=== PATIENT | female | born 1970 | race Caucasian/White ===

== ENCOUNTER 2017-08-26 09:15 | Emergency (ER) | payer MEDICAID ==
[2017-08-26] MEDS ORDERED: NS 500 ML IV ONE (09:26)
[2017-08-26] MEDS ORDERED: ASPIRIN 81 MG CHEWABLE TAB PO ONE (09:26)
--- NOTE | 2017-08-26 09:42 | CPEKG ---
Heart Rate: 69 RR Interval: 870 P-R Interval: 140 QRSD Interval: 84 QT Interval: 372 QTC Interval: 399 P Panther: 72 QRS Panther: 63 T Wave Panther: 50 EKG Severity - ABNORMAL ECG - EKG Impression: SINUS RHYTHM EKG Impression: LEFT ATRIAL ABNORMALITY Electronically Signed By: Beto Hendricks 26-Aug-2017 11:07:32
--- NOTE | 2017-08-26 09:48 | EDPHY ---
H & P Time Seen by Provider: 08/26/17 09:26 HPI/ROS: HPI Chest discomfort. 47-year-old female by private vehicle. This patient reports that she has had intermittent chest discomfort which she describes as twinges in her left upper anterior lateral chest lasting seconds at a time, sudden-onset and then gone. Intermittent in nature. She reports that the discomfort has become more persistent in the last few days and she now describes it as a pulsing burning sensation, again lasting seconds at a time, coming on quickly and then gone, more medial and central left upper chest. She reports some mild shortness of breath but states she thinks this is because of stress. Mother has a history of coronary artery disease. She is not obese. No history of hypertension, diabetes, hyperlipidemia. She does not smoke. She spoke to her primary care physician regarding this complaint. She was told to come to the emergency department. She 1st went to an urgent care was sent here. ROS: Constitutional: No fever, no chills. No weakness. Eyes: No discharge. No changes in vision. ENT: No sore throat. No nasal congestion or rhinorrhea. Respiratory: No cough. As above. Cardiac: As above, no palpitations. Gastrointestinal: No abdominal pain, no vomiting, no diarrhea. Genitourinary: No hematuria. No dysuria or increased frequency with urination. Musculoskeletal: No back pain. No neck pain. No myalgias or arthralgias. Skin: No rashes. Neurological: No headache. No focal weakness or altered sensation. Past medical history: Denies any significant past medical history. She is not on any prescription medications. Social history: Nonsmoker. No IV drugs or street drugs. Here by herself. Denies alcohol. Physical Exam: General Appearance: Alert, no distress. This patient is responding to questions appropriately and in full sentences. This patient appears well- hydrated and well-nourished. Eyes: Pupils equal and round no pallor or injection. No lid edema, erythema or injection. Respiratory: There are no retractions, lungs are clear to auscultation with good air movement bilaterally. Cardiovascular: Regular rate and rhythm. No murmur. Gastrointestinal: Abdomen is soft and nontender, no masses, bowel sounds normal. No focal tenderness at McBurney's point. No Kelly sign. Neurological: Motor sensory function is grossly intact. Cranial nerves are normal. Gait is normal. Skin: Warm and dry, no rashes. Musculoskeletal: Neck is supple and nontender. Extremities are symmetrical. All joints range without pain or impingement. Psychiatric: No agitation. No depression. Database: EKG: EKG time is 9:40 a.m.; EKG shows a narrow complex normal sinus rhythm with a ventricular rate of 69. The LA, QRS, QT intervals are within normal limits. There are no ST-T wave changes indicative of ischemic or injury pattern. No evidence of right heart strain. Interpreted by me. Imaging: Chest x-ray AP portable; the cardiac mediastinal silhouette is unremarkable. No evidence of infiltrate or pneumothorax. No acute cardiopulmonary disease process noted. Interpreted by me. Procedures: Emergency department course: Triage vital signs reviewed and are normal. Patient was given 324 mg of chewed aspirin in triage. Heart score is 2-low risk. No pain at this time of evaluation. 10:30 a.m., patient re-evaluated. Resting comfortably. Son is in her lap. The patient is smiling. Denies any chest pain at this time. Awaiting results of D-dimer. Results of other diagnostic testing discussed with her. 11:00 a.m., patient re-evaluated. Again no chest pain. No shortness of breath. Her workup has been reassuring. Based on her heart score she is low risk. She does not wish to stay for a 2nd troponin or be admitted for observation. The patient competently engages in shared decision making. They demonstrate capacitance to make decisions. She feels comfortable going home at this time with her son. I will have her follow up at [facility] on Tuesday for re-evaluation. Return to emergency department precautions were thoroughly reviewed with her. All of her questions were answered. She was discharged in good condition. Differential Diagnosis: The differential diagnosis on this patient includes but is not limited to noncardiac chest pain. Myocarditis, pericarditis, acute coronary syndrome, pulmonary embolism, pneumothorax, pneumonia, aortic dissection unlikely. This represents a partial list of diagnoses considered. These considerations are based on history, physical exam, past history, reassessment and diagnostic testing. Smoking Status: Never smoked Constitutional: Initial Vital Signs Temperature (C) 36.6 C 08/26/17 09:16 Heart Rate 83 08/26/17 09:16 Respiratory Rate 18 08/26/17 09:16 Blood Pressure 121/85 H 08/26/17 09:16 O2 Sat (%) 98 08/26/17 09:16 O2 Delivery Mode Room Air Allergies/Adverse Reactions: No Known Allergies Allergy (Unverified 08/26/17 09:15) Home Medications: Medication Instructions Recorded NK [No Known Home Meds] 08/26/17 Medical Decision Making - Diagnostics Imaging Results: Imaging Impressions Chest X-Ray 08/26/17 09:26 Impression: No significant radiographic abnormality. Specifically, a source for chest pain is not identified. - Data Points Laboratory Results: Laboratory Results 08/26/17 10:04 08/26/17 10:04 08/26/17 08/26/17 08/26/17 10:04 10:04 10:04 WBC 6.00 10^3/uL 10^3/uL (3.80-9.50) RBC 4.97 10^6/uL 10^6/uL (4.18-5.33) Hgb 14.8 g/dL g/dL (12.6-16.3) Hct 42.1 % % (38.0-47.0) MCV 84.7 fL fL (81.5-99.8) MCH 29.8 pg pg (27.9-34.1) MCHC 35.2 g/dL g/dL (32.4-36.7) RDW 12.5 % % (11.5-15.2) Plt Count 288 10^3/uL 10^3/uL (150-400) MPV 8.8 fL fL (8.7-11.7) Neut % (Auto) 63.1 % % (39.3-74.2) Lymph % (Auto) 27.3 % % (15.0-45.0) Hendry % (Auto) 6.5 % % (4.5-13.0) Eos % (Auto) 2.0 % % (0.6-7.6) Baso % (Auto) 0.8 % % (0.3-1.7) Nucleat RBC Rel Count 0.0 % % (0.0-0.2) Absolute Neuts (auto) 3.78 10^3/uL 10^3/uL (1.70-6.50) Absolute Lymphs (auto) 1.64 10^3/uL 10^3/uL (1.00-3.00) Absolute Monos (auto) 0.39 10^3/uL 10^3/uL (0.30-0.80) Absolute Eos (auto) 0.12 10^3/uL 10^3/uL (0.03-0.40) Absolute Basos (auto) 0.05 10^3/uL 10^3/uL (0.02-0.10) Absolute Nucleated RBC 0.00 10^3/uL 10^3/uL (0-0.01) Immature Gran % 0.3 % % (0.0-1.1) Immature Gran # 0.02 10^3/uL 10^3/uL (0.00-0.10) PT 13.3 SEC SEC (12.0-15.0) INR 0.99 (0.83-1.16) APTT 28.1 SEC SEC (23.0-38.0) D-Dimer < 0.27 ug/mLFEU ug/mLFEU (0.00-0.50) Sodium 142 mEq/L mEq/L (135-145) Potassium 4.2 mEq/L mEq/L (3.3-5.0) Chloride 105 mEq/L mEq/L (97-110) Carbon Dioxide 23 mEq/l mEq/l (22-31) Anion Gap 14 mEq/L mEq/L (8-16) BUN 15 mg/dL mg/dL (7-23) Creatinine 0.8 mg/dL mg/dL (0.6-1.0) Estimated GFR > 60 Glucose 81 mg/dL mg/dL (70-100) Calcium 9.5 mg/dL mg/dL (8.5-10.4) Creatine Kinase 54 IU/L IU/L (0-156) CK-MB (CK-2) Fraction 0.39 ng/mL ng/mL (0.00-3.19) Troponin I < 0.012 ng/mL ng/mL (0.000-0.034) Medications Given: Discontinued Medications Aspirin (Aspirin) 324 mg PO EDNOW ONE Stop: 08/26/17 09:27 Last Admin: 08/26/17 10:01 Dose: 324 mg Sodium Chloride (Ns) 500 mls @ 1,000 mls/hr IV EDNOW ONE PRN Reason: Protocol Stop: 08/26/17 09:55 Last Admin: 08/26/17 10:01 Dose: 500 mls Departure - Departure Disposition: [facility] Inpatient Acute Clinical Impression: Chest discomfort Condition: Good Instructions: Chest Pain (ED) Additional Instructions: Read and follow provided instructions. Follow-up with [facility] on Tuesday for re-evaluation. Call this afternoon for appointment time, it is important you follow up within the next 3 days. They will evaluate you further and obtain a stress test. Take 81 mg of chewed aspirin daily. Return to the emergency department immediately for worsening chest pain, shortness of breath or other serious concerns. Referrals: Katelyn Jeffrey MD [Primary Care Provider] - As per Instructions [facility] [Provider Group] - As per Instructions
[2017-08-26 10:23] LABS: PLATELET COUNT 288 10^3/uL (150-400)
[2017-08-26 10:31] LABS: CREATINE KINASE 54 IU/L (0-156); INR 0.99 (0.83-1.16); PROTIME(PATIENT) 13.3 SEC (12.0-15.0)
[2017-08-26 11:15] VITALS: BP 96/67
== END 2017-08-26 11:17 | disposition still patient (30) ==
DX: R07.89 Other chest pain (principal); E86.9 Volume depletion, unspecified

== ENCOUNTER 2018-01-16 08:15 | Day surgery (SDC) | payer MEDICAID ==
[2018-01-16] MEDS ORDERED: LIDOCAINE 1% 2 ML INJ ONE (08:30)
[2018-01-16] MEDS ORDERED: LR 1,000 ML IV ONE (08:42)
[2018-01-16] MEDS ORDERED: NALOXONE HCL 0.4 MG/ML INJ IVP PRN (09:57)
[2018-01-16] MEDS ORDERED: ONDANSETRON 4 MG/2 ML VIAL IVP PRN (09:57)
[2018-01-16] MEDS ORDERED: LR 500 ML IV PRN (09:57)
[2018-01-16] MEDS ORDERED: fentaNYL 100 MCG/2 ML INJ IVP PRN (09:57)
[2018-01-16] MEDS ORDERED: DEXAMETHASONE 4 MG/ML VIAL IVP PRN (09:57)
--- NOTE | 2018-01-16 09:57 | PDANEPAE ---
ANE History of Present Illness screening and f/u on abnl colonoscopies ANE Past Medical History - Cardiovascular History Hx Hypertension: No Hx Arrhythmias: No Hx Chest Pain: No Hx Coronary Artery / Peripheral Vascular Disease: No Hx CHF / Valvular Disease: No Hx Palpitations: No - Pulmonary History Hx COPD: No Hx Asthma/Reactive Airway Disease: No Hx Recent Upper Respiratory Infection: No Hx Oxygen in Use at Home: No Hx Sleep Apnea: No Sleep Apnea Screening Result - Last Documented: Negative - Neurologic History Hx Cerebrovascular Accident: No Hx Seizures: No Hx Dementia: No - Endocrine History Hx Diabetes: No - Renal History Hx Renal Disorders: No - Liver History Hx Hepatic Disorders: No - Neurological & Psychiatric Hx Hx Neurological and Psychiatric Disorders: Yes Neurological / Psychiatric History Comment: anxiety at times - Cancer History Hx Cancer: No - Congenital Disorder History Hx Congenital Disorders: No - GI History Hx Gastrointestinal Disorders: Yes Gastrointestinal History Comment: hx of colonoscopies x3. poss reflux - Other Health History Other Health History: wears reading glasses - Chronic Pain History Chronic Pain: No - Surgical History Prior Surgeries: wisdom teeth extracted. colonoscopies x3 ANE Review of Systems Review of Systems: - Exercise capacity METS (RN): 4 METS ANE Patient History - Allergies Allergies/Adverse Reactions: No Known Allergies Allergy (Verified 01/02/18 11:58) - Home Medications Home Medications: NK [No Known Home Meds] 08/26/17 [Last Taken Unknown] - NPO status NPO Since - Liquids (Date): 01/16/18 NPO Since - Liquids (Time): 00:15 NPO Since - Solids (Date): 01/15/18 NPO Since - Solids (Time): 09:00 - Smoking Hx Smoking Status: Never smoked - Family Anes Hx Family Hx Anesthesia Complications: none ANE Labs/Vital Signs - Vital Signs Blood Pressure: 126/69 Heart Rate: 63 Respiratory Rate: 20 O2 Sat (%): 96 Height: 162.56 cm Weight: 58.06 kg ANE Physical Exam - Airway Neck exam: FROM Mallampati Score: Class 1 Mouth exam: normal dental/mouth exam - Pulmonary Pulmonary: no respiratory distress - Cardiovascular Cardiovascular: regular rate and rhythym - ASA Status ASA Status: II ANE Anesthesia Plan Anesthesia Plan: GA with mask
[2018-01-16] MEDS ORDERED: fentaNYL 100 MCG/2 ML INJ ONE (10:00)
[2018-01-16] MEDS ORDERED: LIDOCAINE 2% 5 ML SDV ONE (10:00)
[2018-01-16] MEDS ORDERED: PROPOFOL/EMULSION 500 MG/50 ML BOTTLE IV ONE (10:00)
--- NOTE | 2018-01-16 10:10 | PDGENHP ---
History & Physical Chief Complaint: Abdominal pain, epigastric History of Present Illness: Personal history of pre-cancerous colon polyps ( surveillance colonoscopy). Family History of colon cancer multiple relatives. 1 year of epigastric abdominal pain. No N/V or weight loss. Chronic NSAID use. Pertinent Past, Social, Family History: PMH: Headaches. Personal history of colon polyps. FH: multiple 2nd degree relatives with colon cancer. SH: No tobacco or ETOH Relevant Physical Exam: NAD. CTA B/L. RRR without m/r/g. GI: Soft. NABS. NT/ ND. No R/G Cardiorespiratory Assessment: ASA I. EGD. Colonoscopy with MAC
--- NOTE | 2018-01-16 10:25 | GIREPORT ---
[facility] Surgical Services - Endoscopy Department Patient Name: Kayla Anaya Procedure Date: 01/16/2018 9:59 AM Patient Type: Outpatient Attending MD/ ER Physician: Cristo Kong MD Procedure: Upper GI endoscopy Indications: Epigastric abdominal pain, Celiac disease Providers: Cristo Kong MD Medicines: Propofol per Anesthesia Complications: No immediate complications. Description of Procedure: After obtaining informed consent, the endoscope was passed under direct vision. Throughout the procedure, the patient's blood pressure, pulse, and oxygen saturations were monitored continuously. The Endoscope was intro duced through the mouth, and advanced to the second part of duodenum. The [facility] er GI endoscopy was accomplished without difficulty. The patient tolerated th e procedure well. Findings: A non-obstructing Schatzki ring was found at the gastroesophageal junct ion. The stomach was normal. The duodenal bulb, first portion of the duodenum and second portion of the duodenum were normal. Biopsies for histology were taken with a cold for ceps for evaluation of celiac disease. Estimated Blood Loss: Estimated blood loss: none. Post Op Diagnosis: - Non-obstructing Schatzki ring. - Normal stomach. - Normal duodenal bulb, first portion of the duodenum and second portio n of the duodenum. Biopsied. - No endoscopic features of celiac sprue. - No clear cause for abdominal pain. Recommendation: - Await pathology results. - Gluten free diet. - Return to physician child center assistant as previously scheduled. - Perform a colonoscopy today. - Continue present medications. - Patient has a contact number available for emergencies. The signs and symptoms of potential delayed complications were discussed with the pat ient. Return to normal activities tomorrow. Written discharge instructions we re provided to the patient. - Thank you for allowing me to be involved in the care of your patient. Attending Participation: I personally performed the entire procedure without the assistance of a fellow, resident or surg ical child center assistant. Cristo Kong MD Cristo Kong MD 01/16/2018 10:24:38 AM This report has been signed electronicallyDavid MD Dilan Number of Addenda: 0 Note Initiated On: 01/16/2018 9:59 AM [email or web address]
--- NOTE | 2018-01-16 10:48 | GIREPORT ---
[facility] Surgical Services - Endoscopy Department Patient Name: Kayla Anaya Procedure Date: 01/16/2018 10:22 AM Patient Type: Outpatient Attending MD/ ER Physician: Cristo Kong MD Procedure: Colonoscopy Indications: Colon cancer screening in patient at increased risk: Family history of colorectal cancer in multiple 2nd degree relatives, High risk colon can cer surveillance: Personal history of colonic polyps Providers: Cristo Kong MD Medicines: Propofol per Anesthesia Complications: No immediate complications. Description of Procedure: After obtaining informed consent, the scope was passed under direct vis ion. Throughout the procedure, the patient's blood pressure, pulse, and oxyg en saturations were monitored continuously. The Colonoscope was introduced through the anus and advanced to the cecum, identified by appendiceal orifice and ileocecal valve. The colonoscopy was performed without difficulty. The patient tolerated the procedure well. The quality of th e bowel preparation was excellent. The ileocecal valve, appendiceal orifi ce, and rectum were photographed. Findings: The perianal and digital rectal examinations were normal. Pertinent negatives include normal sphincter tone and no palpable rectal lesions. The entire examined colon appeared normal. Estimated Blood Loss: Estimated blood loss: none. Post Op Diagnosis: - The entire examined colon is normal. - No specimens collected. Recommendation: - Repeat colonoscopy in 5 years for surveillance. - Family history questionnaire to patient and return to us when complet ed. A genetic consultation will be arranged if indicated based on review of t he survey. - Resume previous diet. - Continue present medications. - Patient has a contact number available for emergencies. The signs and symptoms of potential delayed complications were discussed with the pat ient. Return to normal activities tomorrow. Written discharge instructions we re provided to the patient. - Thank you for allowing me to be involved in the care of your patient. Attending Participation: I personally performed the entire procedure without the assistance of a fellow, resident or surg ical clinical nursing assistant. Cristo Kong MD Cristo Kong MD 01/16/2018 10:47:24 AM This report has been signed electronicallyDavid MD Dilan Number of Addenda: 0 Note Initiated On: 01/16/2018 10:22 AM Total Procedure Duration Time 0 hours 10 minutes 40 seconds [email or web address]
[2018-01-16 11:55] VITALS: BP 103/75
--- NOTE | 2018-01-16 15:20 | POSTANESTH ---
Post Anesthetic Evaluation Cardiovascular Status: Normal, Stable Respiratory Status: Normal, Stable Level of Consciousness/Mental Status: Can Participate in Eval Pain Control: Adequate, Prn Tx Ordered Nausea/Vomiting Control: Adequate, Prn Tx Ordered Complications Possibly Related to Anesthesia: None Noted (no questions or comlaints prior to dc, case load today quick and unable to document at time of exam)
== END 2018-01-16 11:48 | disposition home or self-care (01) ==
LOC: FSGY 08:15
PROVIDERS: ATTEND Internal Medicine Gastroenterology
DX: R10.13 Epigastric pain (principal); Z80.0 Family history of malignant neoplasm of digestive organs
CPT/HCPCS: J2704; J3010

== ENCOUNTER 2018-02-22 20:05 | Emergency (ER) | payer MEDICAID ==
[2018-02-22] MEDS ORDERED: NS 1,000 ML IV ONE (20:55)
--- NOTE | 2018-02-22 20:58 | EDPHY ---
H & P Time Seen by Provider: 02/22/18 20:37 HPI/ROS: CHIEF COMPLAINT: Severe abdominal pain HISTORY OF PRESENT ILLNESS: Patient has a history of some gastrointestinal issues with ongoing epigastric pain with a negative EGD [address] Kong. She has never had evaluation for gallstones before to her knowledge. She presents tonight with severe epigastric pain starting at 6:00 p.m. While she was eating rice, radiating to both sides across her lower ribs to the back most severely on the right side. Associated with nausea and vomiting, no urinary symptoms, a little bit of diarrhea. No injury or trauma. Not better worse with anything. REVIEW OF SYSTEMS: Eye: no change in vision ENT: no sore throat Cardiac: no chest pain or syncope Pulmonary: no cough or SOB Abdomen: HPI Musculoskeletal: no back pain Skin: no rash Neuro: Little bit of a migraine tonight Constitutional: no fever : no urinary symptoms A comprehensive 10 point review of systems is otherwise negative aside from elements mentioned in the history of present illness. PAST MEDICAL HISTORY: As in HPI otherwise negative Social history: Nonsmoker, minimal alcohol General Appearance: Alert and conversant, cooperative. Eyes: No scleral icterus. ENT, Mouth: Normal mucous membranes. Respiratory: Normal respiratory effort, breath sounds equal, lungs are clear to auscultation. Cardiovascular: Regular rate and rhythm. Gastrointestinal: Epigastric and right upper quadrant tenderness to palpation. No lower abdominal or McBurney's point tenderness. No rebound or guarding. Neurological: Alert, face symmetric, normal motor and sensory in extremities. Skin: Warm and dry, no rashes. Musculoskeletal: No peripheral edema. Psychiatric: Not agitated. Emergency Department course/MDM: Declined pain medication or anti nausea. Gallbladder ultrasound labs to include CBC LFTs lipase HCG. With bilateral pain and tenderness to palpation and no urinary symptoms, I think renal colic is unlikely. 223: No stones, nl CBD, wall thickness 4mm per Isgeraldine. 2237: Discussed with Javon will see in ED. 2301: Seen by Dr. Alejandro discussed with the patient, recommends discharge on oral Levaquin 750 mg per day for 5 days, she will see her in the office. Risk, benefits, alternatives of this course of action discussed with the patient and consented by surgeon. Smoking Status: Never smoked Constitutional: Initial Vital Signs Temperature (C) 37.3 C 02/22/18 20:15 Heart Rate 113 H 02/22/18 20:15 Respiratory Rate 20 02/22/18 20:15 Blood Pressure 105/67 02/22/18 20:15 O2 Sat (%) 97 02/22/18 20:15 O2 Delivery Mode Room Air Allergies/Adverse Reactions: No Known Allergies Allergy (Verified 02/22/18 20:14) Home Medications: Medication Instructions Recorded levOFLOXACIN [levAQUIN (*)] 750 mg PO DAILY #4 tab 02/22/18 Medical Decision Making Differential Diagnosis: Differential considered including but not limited to reflux, hepatitis, pancreatitis, cholecystitis - Data Points Laboratory Results: Laboratory Results 02/22/18 20:43 02/22/18 20:43 02/22/18 02/22/18 02/22/18 20:43 20:43 20:43 WBC 12.56 10^3/uL H 10^3/uL (3.80-9.50) RBC 4.76 10^6/uL 10^6/uL (4.18-5.33) Hgb 14.3 g/dL g/dL (12.6-16.3) Hct 40.5 % % (38.0-47.0) MCV 85.1 fL fL (81.5-99.8) MCH 30.0 pg pg (27.9-34.1) MCHC 35.3 g/dL g/dL (32.4-36.7) RDW 12.0 % % (11.5-15.2) Plt Count 253 10^3/uL 10^3/uL (150-400) MPV 8.8 fL fL (8.7-11.7) Neut % (Auto) 92.3 % H % (39.3-74.2) Lymph % (Auto) 3.2 % L % (15.0-45.0) Saunders % (Auto) 3.5 % L % (4.5-13.0) Eos % (Auto) 0.4 % L % (0.6-7.6) Baso % (Auto) 0.2 % L % (0.3-1.7) Nucleat RBC Rel Count 0.0 % % (0.0-0.2) Absolute Neuts (auto) 11.59 10^3/uL H 10^3/uL (1.70-6.50) Absolute Lymphs (auto) 0.40 10^3/uL L 10^3/uL (1.00-3.00) Absolute Monos (auto) 0.44 10^3/uL 10^3/uL (0.30-0.80) Absolute Eos (auto) 0.05 10^3/uL 10^3/uL (0.03-0.40) Absolute Basos (auto) 0.03 10^3/uL 10^3/uL (0.02-0.10) Absolute Nucleated RBC 0.00 10^3/uL 10^3/uL (0-0.01) Immature Gran % 0.4 % % (0.0-1.1) Immature Gran # 0.05 10^3/uL 10^3/uL (0.00-0.10) RBC/WBC/PLT Morphology TNP Platelet Estimate TNP Sodium 136 mEq/L mEq/L (135-145) Potassium 3.7 mEq/L mEq/L (3.3-5.0) Chloride 103 mEq/L mEq/L (97-110) Carbon Dioxide 24 mEq/l mEq/l (22-31) Anion Gap 9 mEq/L mEq/L (6-14) BUN 10 mg/dL mg/dL (7-23) Creatinine 0.7 mg/dL mg/dL (0.6-1.0) Estimated GFR > 60 Glucose 100 mg/dL mg/dL (70-100) Calcium 9.3 mg/dL mg/dL (8.5-10.4) Total Bilirubin 2.0 mg/dL H mg/dL (0.1-1.4) Conjugated Bilirubin 0.3 mg/dL mg/dL (0.0-0.5) Unconjugated Bilirubin 1.7 mg/dL H mg/dL (0.0-1.1) AST 139 IU/L H IU/L (14-46) ALT 87 IU/L H IU/L (9-52) Alkaline Phosphatase 74 IU/L IU/L (38-126) Total Protein 7.6 g/dL g/dL (6.3-8.2) Albumin 4.6 g/dL g/dL (3.5-5.0) Lipase 148 IU/L IU/L (23-300) Beta HCG, Qual NEGATIVE Medications Given: Discontinued Medications Sodium Chloride (Ns) 1,000 mls @ 0 mls/hr IV EDNOW ONE; Wide Open PRN Reason: Protocol Stop: 02/22/18 20:56 Last Admin: 02/22/18 20:50 Dose: 1,000 mls Departure - Departure Disposition: Home, Routine, Self-Care Clinical Impression: Abdominal pain Qualifiers: Abdominal location: right upper quadrant Qualified Code(s): R10.11 - Right upper quadrant pain Condition: Good Instructions: Acute Abdominal Pain (ED) Referrals: Katelyn Jeffrey MD [Primary Care Provider] - As per Instructions Dinora Alejandro MD [Medical Doctor] - As per Instructions Prescriptions: levOFLOXACIN [levAQUIN (*)] 750 mg PO DAILY #4 tab
[2018-02-22 21:03] LABS: PLATELET COUNT 253 10^3/uL (150-400)
[2018-02-22 23:26] VITALS: BP 114/68
--- NOTE | 2018-02-23 08:06 | GCON ---
DATE OF CONSULTATION: 02/22/2018 REFERRING PHYSICIAN: Daryn Yeager MD CHIEF COMPLAINT: Viry cholecystitis. HISTORY OF PRESENT ILLNESS: The patient is a 47-year-old woman who has a longstanding history of chr onic abdominal pain. She is followed by Dr. Kong. A couple months ago, she had an upper and lower endoscopy which was reported as completely normal. She was intending to follow up with Dr. Kong to continue to pursue the abdominal pain but has not yet been able to accomplish that. This evening at 6 p.m., she had intense onset of epigastric pain. It radiated down her bilateral abdomens into her r ight back. She had emesis x1, which did not alleviate the pain. She called the nurse line and was r ecommended to present to the emergency room. In the emergency room, her pain has improved somewhat. PAST MEDICAL HISTORY: Abdominal pain. SOCIAL HISTORY: She has a 6-year-old son. She is a nonsmoker. FAMILY HISTORY: No history of inflammatory bowel disease. ALLERGIES: No known drug allergies. REVIEW OF SYSTEMS: She does complain of headaches, muscle tension, abdominal pain. She denies urina ry symptoms. She is not currently having nausea. She has had 1 bout of diarrhea. No constipation. Otherwise, 10-point review of systems. PHYSICAL EXAM: VITAL SIGNS: 37.3, 100, 113/65, 16, 94%. GENERAL: Pleasant thin woman sitting up i n bed with a 6-year-old on [facility]. She is well groomed and fit. HEENT: Normocephalic. No gross he aring deficits. Mucous membranes moist. Pupils equal and round. No scleral icterus. LUNGS: Clear to auscultation bilaterally. No increased work of breathing. CARDIAC: A bit tachycardic but regul ar. ABDOMEN: Bowel sounds are present. She has a small umbilical hernia that is nontender. She is quite soft and actually nontender to medium palpation. SKIN: Warm and dry. PSYCH: Mood and affec t normal. NEURO: Grossly intact. LABORATORY/IMAGING DATA: I personally reviewed the results of her ultrasound, which does not show ga llstones. It does have gallbladder wall thickening. Her laboratory results are significant for a wh ite blood cell count of 12.56. Her lipase is normal. Her AST is 139, ALT 87, and her total bilirubi n is 2. Of that, conjugated is only 0.3. IMPRESSION/PLAN: The patient is a 47-year-old woman with chronic abdominal pain and acute onset of u pper abdominal pain that is improved with rest. We discussed additional imaging such as a HIDA scan. We discussed antibiotics and follow up phone call tomorrow to make sure her symptoms are not escala ting. We also discussed going to the operating room tonight for cholecystectomy. She does not have pericholecystic fluid, but there is a chance she could have acalculous cholecystitis due to white blo od cell count elevated, thickened gallbladder wall, and mid epigastric tenderness. She would like to be discharged with antibiotics. She understands that if her clinical condition worsens, she needs t o return to the emergency department. I have also provided her with my office phone number. /[id number]/MODL
== END 2018-02-22 23:25 | disposition home or self-care (01) ==
DX: R10.11 Right upper quadrant pain (principal); E86.9 Volume depletion, unspecified

== ENCOUNTER 2018-03-07 10:01 | Day surgery (SDC) | payer MEDICAID ==
[2018-03-07] MEDS ORDERED: ceFAZolin 2 GM/DEXTROSE 100 ML IV ONE (10:05)
[2018-03-07] MEDS ORDERED: LIDOCAINE 1% 2 ML INJ ID PRN (10:06)
[2018-03-07] MEDS ORDERED: LR 1,000 ML IV ONE (10:06)
--- NOTE | 2018-03-07 10:32 | PDHPUP ---
History & Physical Update H&P update statement: This history and physical update is based on an assessment of the patient which was completed after admission or registration (within 24 hours), but prior to the surgery/procedure. H&P update: H&P reviewed & patient examined, no change in patient's condition since H&P completed
[2018-03-07] MEDS ORDERED: BUPIVACAINE 0.5% 30 ML SDV ONE (11:35)
[2018-03-07] MEDS ORDERED: MIDAZOLAM 2 MG/2 ML VIAL ONE (11:44)
[2018-03-07] MEDS ORDERED: MIDAZOLAM 2 MG/2 ML VIAL IVP ONE (11:45)
[2018-03-07] MEDS ORDERED: PROPOFOL 200 MG/20 ML VIAL ONE (11:47)
[2018-03-07] MEDS ORDERED: fentaNYL 100 MCG/2 ML INJ ONE (11:47)
[2018-03-07] MEDS ORDERED: ROCURONIUM 50 MG/5 ML VIAL ONE (11:48)
[2018-03-07] MEDS ORDERED: LIDOCAINE 2% 5 ML SDV ONE (11:49)
[2018-03-07] MEDS ORDERED: DEXAMETHASONE 4 MG/ML VIAL ONE ×2 (11:58→12:04)
[2018-03-07] MEDS ORDERED: ONDANSETRON 4 MG/2 ML VIAL ONE (11:58)
[2018-03-07] MEDS ORDERED: DIAZEPAM 5 MG/ML 1 ML SYR IVP PRN (12:21)
[2018-03-07] MEDS ORDERED: LABETALOL HCL 20 MG/4 ML INJ IVP PRN (12:21)
[2018-03-07] MEDS ORDERED: fentaNYL 100 MCG/2 ML INJ IVP PRN (12:21)
[2018-03-07] MEDS ORDERED: ACETAMINOPHEN 500 MG TAB PO PRN (12:21)
[2018-03-07] MEDS ORDERED: METOCLOPRAMIDE 10 MG/2 ML VIAL IVP PRN (12:21)
[2018-03-07] MEDS ORDERED: ALBUTEROL 3 ML DEYVIAL IH PRN (12:21)
[2018-03-07] MEDS ORDERED: PROMETHAZINE HCL 25 MG/ML INJ IVP PRN (12:21)
[2018-03-07] MEDS ORDERED: LR 500 ML IV PRN (12:21)
[2018-03-07] MEDS ORDERED: NALOXONE HCL 0.4 MG/ML INJ IVP PRN (12:21)
[2018-03-07] MEDS ORDERED: MEPERIDINE 25 MG/0.5 ML AMP IVP PRN (12:21)
[2018-03-07] MEDS ORDERED: HYDROmorphONE/DILAUDID 2 MG/ML INJ IVP PRN (12:21)
[2018-03-07] MEDS ORDERED: PHENYLEPHRINE HCL 100 MCG/ML SYR IVP PRN (12:21)
[2018-03-07] MEDS ORDERED: oxyCODONE IR 5 MG TAB PO PRN (12:21)
--- NOTE | 2018-03-07 12:21 | PDANEPAE ---
ANE History of Present Illness christal hernandez ANE Past Medical History - Cardiovascular History Hx Hypertension: No Hx Arrhythmias: No Hx Chest Pain: No Hx Coronary Artery / Peripheral Vascular Disease: No Hx CHF / Valvular Disease: No Hx Palpitations: No - Pulmonary History Hx COPD: No Hx Asthma/Reactive Airway Disease: No Hx Recent Upper Respiratory Infection: No Hx Oxygen in Use at Home: No Hx Sleep Apnea: No Sleep Apnea Screening Result - Last Documented: Negative - Neurologic History Hx Cerebrovascular Accident: No Hx Seizures: No Hx Dementia: No - Endocrine History Hx Diabetes: No Hypothyroid: No Hyperthyroid: No Obesity: no - Renal History Hx Renal Disorders: No - Liver History Hx Hepatic Disorders: No - Neurological & Psychiatric Hx Hx Neurological and Psychiatric Disorders: Yes Neurological / Psychiatric History Comment: alden mild anxiety - Cancer History Hx Cancer: No - Congenital Disorder History Hx Congenital Disorders: No - GI History Hx Gastrointestinal Disorders: Yes Gastrointestinal History Comment: hx of colonoscopies x3 - Other Health History Other Health History: wears reading glasses - Chronic Pain History Chronic Pain: Yes (headaches) - Surgical History Prior Surgeries: wisdom teeth extracted. colonoscopies x3 ANE Review of Systems Review of systems is: negative Review of Systems: - Exercise capacity Exercise capacity: >=4 METS METS (RN): 4 METS ANE Patient History - Allergies Allergies/Adverse Reactions: No Known Allergies Allergy (Verified 02/22/18 20:14) - Home Medications Home medications: home medication list seen and reviewed Home Medications: Tylenol Extra Strength 2 tab PO PRN PRN 03/07/18 [Last Taken 03/05/18] - NPO status NPO Since - Liquids (Date): 03/07/18 NPO Since - Liquids (Time): 08:30 NPO Since - Solids (Date): 03/06/18 NPO Since - Solids (Time): 20:00 - Anes Hx Anes Hx: no prior problems - Smoking Hx Smoking Status: Never smoked - Family Anes Hx Family Anes Hx: none Family Hx Anesthesia Complications: none ANE Labs/Vital Signs - Vital Signs Vital Signs: reviewed preoperatively; see RN documention for details Blood Pressure: 111/77 Heart Rate: 70 Respiratory Rate: 20 O2 Sat (%): 99 Height: 165.1 cm Weight: 58.967 kg ANE Physical Exam - Airway Neck exam: FROM Mallampati Score: Class 1 Mouth exam: normal dental/mouth exam, small mouth opening - Pulmonary Pulmonary: no respiratory distress - Cardiovascular Cardiovascular: regular rate and rhythym - ASA Status ASA Status: I ANE Anesthesia Plan Anesthesia Plan: general endotracheal anesthesia
[2018-03-07] MEDS ORDERED: SUGAMMADEX SODIUM 200 MG/2 ML VIAL IVP ONE (12:28)
--- NOTE | 2018-03-07 12:29 | POSTOPPROG ---
Post Op Note Date of Operation: 03/07/18 Surgeon: Dinora Alejandro Audio Tape Librarian: moises Anesthesiologist: stephen Anesthesia: GET(General Endotracheal) Pre-op Diagnosis: acute calculous cholecystitis Post-op Diagnosis: same Indication: 47 yo with acute mary Procedure: lap mary Findings: no unusual Inf/Abcess present in the surg proc area at time of surgery?: Yes Depth: Superfical (Skin SQ) EBL: Minimal Specimen(s): gallbladder
[2018-03-07] MEDS ORDERED: KETOROLAC 30 MG/1 ML SDV ONE (12:31)
--- NOTE | 2018-03-07 12:50 | POSTANESTH ---
Post Anesthetic Evaluation Cardiovascular Status: Normal, Stable Respiratory Status: Normal, Stable Level of Consciousness/Mental Status: Can Participate in Eval Pain Control: Adequate, Prn Tx Ordered Nausea/Vomiting Control: Adequate, Prn Tx Ordered Complications Possibly Related to Anesthesia: None Noted
[2018-03-07 13:27] VITALS: BP 115/68
--- NOTE | 2018-03-07 16:44 | GOP ---
DATE OF OPERATION: 03/07/2018 SURGEON: Dinora Alejandro MD TREE FALLER: Little Alvarez, MORRIS ANESTHESIA: General. ANESTHESIOLOGIST: Dr. Choi PREOPERATIVE DIAGNOSIS: Acute calculous cholecystitis. POSTOPERATIVE DIAGNOSIS: Acute calculous cholecystitis. PROCEDURE PERFORMED: Laparoscopic cholecystectomy. FINDINGS: No unusual findings. SPECIMENS: Gallbladder. ESTIMATED BLOOD LOSS: 5 cc. INDICATIONS: Patient presented to the emergency room with acute calculous cholecystitis. She elected to start with antibiotics and delay surgery. DESCRIPTION OF PROCEDURE: Patient was brought into the operating room, placed supine on the table, and general anesthesia was administered. Her abdomen was prepped and draped in the usual sterile fashion. Infiltrated all sites with 0.5 % Marcaine prior to making incisions. I elevated her umbilicus. I made a small prince and I inserted the Veress needle. It passed the hanging drop test. Her abdomen insufflated easily to a pressure of 15 mmHg. Under direct vision, I placed a 5 mm trocar with the camera at this place. There were no injuries from Veress needle placement. Under direct vision, I placed a 10 mm subxiphoid trocar and two 5 mm trocars along the right costal margin. I lifted her gallbladder cephalad and laterally and reduced a small amount of omentum. I exposed the triangle of Calot. I skeletonized the cystic artery and cystic duct so that they were the only 2 structures directly entering the gallbladder. They were skeletonized and each clipped singly toward the gallbladder and doubly clipped distally. They were transected with scissors. The gallbladder was removed from the gallbladder fossa with electrocautery. It was placed in an EndoCatch bag and removed via the 10 mm trocar. Hemostasis achieved on the liver bed. Clips in satisfactory position. Ports were removed under direct vision and the abdomen allowed to desufflate. Fascia closed with 0 Vicryl. Skin closed with 4-0 Monocryl Dermabond applied she was awakened in the operating room, extubated, transferred to PACU in stable condition. /[id number]/MODL MTDD
== END 2018-03-07 14:46 | disposition home or self-care (01) ==
LOC: FSGY 10:01
PROVIDERS: ATTEND Surgery
PROC: 0FT44ZZ Resection of Gallbladder, Percutaneous Endoscopic Approach (ICD-10-PCS; principal; 2018-03-07 11:30)
DX: K80.00 Calculus of gallbladder with acute cholecystitis without obstruction (principal); D36.0 Benign neoplasm of lymph nodes; I73.00 Raynaud's syndrome without gangrene; F41.9 Anxiety disorder, unspecified
CPT/HCPCS: J0690; J1100; J1885; J2250; J2405; J2704; J3010